=== PATIENT | male | born 1945 | race Caucasian/White ===

== ENCOUNTER → 2017-07-06 | Outpatient (CLI) | payer OTHER ==
[2017-07-06 10:10] LABS: BASO % 0.4 % (0.0-1.0); EOS # 0.3 10*3/uL (0.0-0.4); EOS % 2.7 % (1.0-4.0); HEMOGLOBIN 13.3 g/dl (14.0-18.0); LYMPH # 1.6 10*3/uL (1.3-4.4); LYMPH % 16.8 % (27.0-41.0); MEAN CELL VOLUME 88.2 fl (80.0-94.0); MEAN CORPUSCULAR HGB 28.6 pg (27.0-31.0); MEAN CORPUSCULAR HGB CONC 32.4 g/dl (33.0-37.0); MEAN PLATELET VOLUME 9.6 fl (9.6-12.3); MONO # 0.9 10*3/uL (0.1-1.0); MONO % 9.2 % (3.0-9.0); NEUT # 6.9 10*3/uL (2.3-7.9); NEUT % 70.6 % (47.0-73.0); PLATELET COUNT AUTOMATED 325 10*3/uL (130-400); RED BLOOD COUNT 4.65 10*6/uL (4.50-5.90); WHITE BLOOD COUNT 9.8 10*3/uL (4.8-10.8)
== END | disposition home or self-care (01) ==
LOC: LAB 09:49
PROVIDERS: Family Medicine
DX: J06.9 Acute upper respiratory infection, unspecified (principal); K76.89 Other specified diseases of liver; R07.81 Pleurodynia; Z87.891 Personal history of nicotine dependence

== ENCOUNTER → 2017-09-21 | Outpatient (CLI) | payer OTHER ==
[2017-09-21 13:02] LABS: BASO # 0.1 10*3/uL (0.0-0.1); BASO % 0.9 % (0.0-1.0); EOS # 0.2 10*3/uL (0.0-0.4); EOS % 2.4 % (1.0-4.0); HEMATOCRIT 46.7 % (42.0-52.0); HEMOGLOBIN 14.8 g/dl (14.0-18.0); LYMPH # 2.5 10*3/uL (1.3-4.4); LYMPH % 27.5 % (27.0-41.0); MEAN CELL VOLUME 88.1 fl (80.0-94.0); MEAN CORPUSCULAR HGB 27.9 pg (27.0-31.0); MEAN CORPUSCULAR HGB CONC 31.7 g/dl (33.0-37.0); MEAN PLATELET VOLUME 10.8 fl (9.6-12.3); MONO # 0.7 10*3/uL (0.1-1.0); MONO % 7.4 % (3.0-9.0); NEUT # 5.6 10*3/uL (2.3-7.9); NEUT % 61.5 % (47.0-73.0); PLATELET COUNT AUTOMATED 266 10*3/uL (130-400); RED CELL DISTRI WIDTH 14.5 % (0-14.5); WHITE BLOOD COUNT 9.1 10*3/uL (4.8-10.8)
== END | disposition home or self-care (01) ==
LOC: LAB 12:07
PROVIDERS: Family Medicine
DX: J18.9 Pneumonia, unspecified organism (principal)

== ENCOUNTER → 2018-02-23 | Day surgery (SDC) | payer OTHER ==
[~2018-02-23] VITALS: Ht 172.7 cm; Wt 98.4 kg
[~2018-02-23] MED LIST: AMLODIPINE BESYL5 MG PO; QUINAPRIL20 MG PO
--- NOTE | ~2018-02-23 | O ---
[place], [place] OPERATIVE NOTE NAME: DENISA SOARES UNIT #: [id number] ROOM: DOCTOR: JAD THAKUR MD BIRTHDATE: [birth year] DOS: 02/23/2018 HISTORY OF PRESENT ILLNESS: This is a 72-year-old patient who has presented with a concern of colonic screening. ALLERGIES: No known to medication. PAST MEDICAL HISTORY: Associated with hypertension. SOCIAL HISTORY: Nonsmoker. Social alcohol consumer. PAST SURGICAL HISTORY: Right total knee. OPERATION PERFORMED: Today's procedure part of investigation is colonoscopy plus 4 snare polypectomy and 2 piecemeal polypectomy. PREMEDICATION: Propofol. SCOPE: Olympus forward-viewing colonoscope 10L video. REPORT: After putting the patient in left lateral position and application of lubricant to rectal pouch and digital examination, scope was introduced. Thereafter, under direct visualization, advanced through the length of colon without difficulty. A sessile colonic polyp from rectal pouch with piecemeal polypectomy removed. Another polypoid lesion with a snare was polypectomized. Scope negotiated to the splenic flexure, polypoid lesion with snare was polypectomized. Another polypoid lesion from hepatic flexure was polypectomized. As I approached the base of cecum, another vertically positioned polyp was shaved off the skin with snare polypectomy and another small sessile polypoid lesion with piecemeal polypectomy removed. Base of the cecum explored. Appendiceal orifice identified and ileocecal valve was defined. Scope was gradually withdrawn. A very tortuous redundant colon experienced. Diverticulosis, particularly left side of the colon was noticed. Air was suctioned out. The patient was extubated and tolerated the procedure well. IMPRESSION: Diverticulosis, multiple colonic polyps at sigmoid colon, splenic flexure, hepatic flexure and cecum; redundant and tortuous colon. PLAN AND DISCUSSION: High fiber fruit diet. ACTIVITY: Ad fabiana. FOLLOWUP: Routinely with you in office and p.r.n. visit with us in [facility]. [place], [place] OPERATIVE NOTE NAME: DENISA SOARES UNIT #: [id number] ROOM: DOCTOR: JAD THAKUR MD BIRTHDATE: [birth year] JDA THAKUR MD CM:OPRECORD:OPERATIVE NOTE [id number] HERB THAKUR MD (TED) 02/23/18 1337 interface
[2018-02-23 11:21] VITALS: BP 142/84
[2018-02-23 13:13] VITALS: BP 132/84
[2018-02-23 13:25] VITALS: BP 129/78
[2018-02-23 13:40] VITALS: BP 130/77
== END | disposition home or self-care (01) ==
LOC: SDC 02-22 08:00
DX: Z12.11 Encounter for screening for malignant neoplasm of colon (principal); K63.5 Polyp of colon; D12.8 Benign neoplasm of rectum; K56.2 Volvulus; K57.30 Diverticulosis of large intestine without perforation or abscess without bleeding; I10 Essential (primary) hypertension; M19.90 Unspecified osteoarthritis, unspecified site; Z87.891 Personal history of nicotine dependence; Z96.651 Presence of right artificial knee joint; Z80.0 Family history of malignant neoplasm of digestive organs

== ENCOUNTER → 2019-12-25 | Outpatient (CLI) | payer OTHER ==
[2019-12-25 08:27] LABS: BASO # 0.1 10*3/uL (0.0-0.1); BASO % 0.9 % (0.0-1.0); EOS # 0.2 10*3/uL (0.0-0.4); EOS % 2.5 % (1.0-4.0); HEMATOCRIT 48.5 % (42.0-52.0); LYMPH # 2.1 10*3/uL (1.3-4.4); LYMPH % 26.9 % (27.0-41.0); MEAN CELL VOLUME 87.7 fl (80.0-94.0); MEAN CORPUSCULAR HGB 28.2 pg (27.0-31.0); MEAN CORPUSCULAR HGB CONC 32.2 g/dl (33.0-37.0); MEAN PLATELET VOLUME 10.3 fl (9.6-12.3); MONO # 0.6 10*3/uL (0.1-1.0); MONO % 8.1 % (3.0-9.0); NEUT # 4.8 10*3/uL (2.3-7.9); NEUT % 61.3 % (47.0-73.0); PLATELET COUNT AUTOMATED 274 10*3/uL (130-400); RED BLOOD COUNT 5.53 10*6/uL (4.50-5.90); RED CELL DISTRI WIDTH 12.7 % (0-14.5); WHITE BLOOD COUNT 7.7 10*3/uL (4.8-10.8)
[2019-12-25 08:54] LABS: ALKALINE PHOSPHATASE 74 U/L (45-117); BILIRUBIN, DIRECT 0.2 mg/dL (0.0-0.2); BUN 24 mg/dl (7-24); CHLORIDE 104 mmol/L (98-107); CHOLESTEROL 210 mg/dL (<200); CREATININE 1.15 mg/dL (0.70-1.30); HDL CHOLESTEROL 31 mg/dl (40-60); LDL CHOLESTEROL 121 mg/dL (9-159); SGOT/AST 26 IU/L (3-35); SGPT/ALT 42 U/L (12-78); SODIUM 140 mmol/L (136-145); TRIGLYCERIDES 289 mg/dl (<150); VLDL CHOLESTEROL 58 mg/dL (6-40)
[2019-12-25 08:58] LABS: THYROXINE (T4) TOTAL 9.3 ug/dl (4.5-12.1)
== END | disposition home or self-care (01) ==
LOC: LAB 07:33
PROVIDERS: ATTEND Family Medicine
DX: Z12.5 Encounter for screening for malignant neoplasm of prostate (principal); Z00.00 Encounter for general adult medical examination without abnormal findings; R35.1 Nocturia; R53.82 Chronic fatigue, unspecified; E55.9 Vitamin D deficiency, unspecified; Z79.899 Other long term (current) drug therapy

== ENCOUNTER → 2020-02-03 | Outpatient (CLI) | payer OTHER ==
[2020-02-03 09:06] LABS: CHOLESTEROL 160 mg/dL (<200); HDL CHOLESTEROL 33 mg/dl (40-60); LDL CHOLESTEROL 78 mg/dL (9-159); TRIGLYCERIDES 247 mg/dl (<150); VLDL CHOLESTEROL 49 mg/dL (6-40)
== END | disposition home or self-care (01) ==
LOC: LAB 08:15
PROVIDERS: ATTEND Family Medicine
DX: E78.00 Pure hypercholesterolemia, unspecified (principal); R73.9 Hyperglycemia, unspecified

== ENCOUNTER → 2021-01-18 | Outpatient (CLI) | payer OTHER ==
[2021-01-18 08:10] LABS: BASO # 0.1 10*3/uL (0.0-0.1); EOS # 0.2 10*3/uL (0.0-0.4); EOS % 2.7 % (1.0-4.0); HEMATOCRIT 47.6 % (42.0-52.0); LYMPH % 28.3 % (27.0-41.0); MEAN CORPUSCULAR HGB 28.8 pg (27.0-31.0); MEAN CORPUSCULAR HGB CONC 32.4 g/dl (33.0-37.0); MEAN PLATELET VOLUME 10.7 fl (9.6-12.3); MONO # 0.5 10*3/uL (0.1-1.0); MONO % 7.6 % (3.0-9.0); NEUT # 4.2 10*3/uL (2.3-7.9); NEUT % 60.1 % (47.0-73.0); PLATELET COUNT AUTOMATED 264 10*3/uL (130-400); RED BLOOD COUNT 5.35 10*6/uL (4.50-5.90); RED CELL DISTRI WIDTH 12.6 % (0-14.5)
[2021-01-18 08:29] LABS: ALBUMIN 3.5 gm/dl (3.1-4.5); BUN 15 mg/dl (7-24); CHLORIDE 106 mmol/L (98-107); CHOLESTEROL 207 mg/dL (<200); CREATININE 0.97 mg/dL (0.70-1.30); LDL CHOLESTEROL 112 mg/dL (9-159); POTASSIUM 3.8 mmol/L (3.5-5.1); SGOT/AST 27 IU/L (3-35); SGPT/ALT 44 U/L (12-78); SODIUM 138 mmol/L (136-145); THYROXINE (T4) TOTAL 9.4 ug/dl (4.5-12.1); TOTAL PROTEIN 7.4 gm/dL (6.4-8.2); TRIGLYCERIDES 327 mg/dl (<150)
[2021-01-18 08:34] LABS: ALKALINE PHOSPHATASE 85 U/L (45-117)
== END | disposition home or self-care (01) ==
LOC: LAB 07:38
PROVIDERS: ATTEND Family Medicine
DX: Z12.5 Encounter for screening for malignant neoplasm of prostate (principal); E55.9 Vitamin D deficiency, unspecified; I10 Essential (primary) hypertension; R35.1 Nocturia; Z79.899 Other long term (current) drug therapy

== ENCOUNTER → 2021-08-09 | Outpatient (CLI) | payer OTHER ==
[2021-08-09 08:19] LABS: BASO # 0.1 10*3/uL (0.0-0.1); EOS # 0.2 10*3/uL (0.0-0.4); EOS % 2.6 % (1.0-4.0); HEMATOCRIT 47.9 % (42.0-52.0); LYMPH # 2.1 10*3/uL (1.3-4.4); LYMPH % 28.1 % (27.0-41.0); MEAN CELL VOLUME 88.1 fl (80.0-94.0); MEAN CORPUSCULAR HGB 28.7 pg (27.0-31.0); MEAN CORPUSCULAR HGB CONC 32.6 g/dl (33.0-37.0); MEAN PLATELET VOLUME 10.5 fl (9.6-12.3); MONO # 0.6 10*3/uL (0.1-1.0); MONO % 7.5 % (3.0-9.0); NEUT # 4.6 10*3/uL (2.3-7.9); NEUT % 60.5 % (47.0-73.0); PLATELET COUNT AUTOMATED 235 10*3/uL (130-400); RED BLOOD COUNT 5.44 10*6/uL (4.50-5.90); RED CELL DISTRI WIDTH 13.1 % (0-14.5); WHITE BLOOD COUNT 7.6 10*3/uL (4.8-10.8)
[2021-08-09 08:36] LABS: ALKALINE PHOSPHATASE 92 U/L (45-117); BUN 21 mg/dl (7-24); CHLORIDE 103 mmol/L (98-107); CREATININE 1.09 mg/dL (0.70-1.30); POTASSIUM 4.1 mmol/L (3.5-5.1); SGOT/AST 30 IU/L (3-35); SGPT/ALT 46 U/L (12-78); SODIUM 138 mmol/L (136-145)
== END | disposition home or self-care (01) ==
LOC: LAB 08:00
PROVIDERS: ATTEND Family Medicine
DX: I10 Essential (primary) hypertension (principal); R73.9 Hyperglycemia, unspecified

== ENCOUNTER → 2021-11-22 | Outpatient (CLI) | payer OTHER ==
[2021-11-22 09:58] LABS: CHOLESTEROL 202 mg/dL (<200); LDL CHOLESTEROL 106 mg/dL (9-159); TRIGLYCERIDES 327 mg/dl (<150)
== END ==
LOC: LAB 08:30
PROVIDERS: ATTEND Family Medicine
DX: E11.9 Type 2 diabetes mellitus without complications (principal); R53.83 Other fatigue; E78.00 Pure hypercholesterolemia, unspecified

== ENCOUNTER → 2022-02-04 | Outpatient (CLI) | payer OTHER | END | disposition home or self-care (01) | LOC: RAD 09:43 | PROVIDERS: ATTEND Chiropractor | DX: M47.817 Spondylosis without myelopathy or radiculopathy, lumbosacral region (principal); I70.0 Atherosclerosis of aorta ==

== ENCOUNTER → 2022-05-20 | Outpatient (CLI) | payer OTHER | END | disposition home or self-care (01) | LOC: LAB 11:57 | PROVIDERS: ATTEND Family Medicine | DX: R91.1 Solitary pulmonary nodule (principal); R61 Generalized hyperhidrosis ==

== ENCOUNTER → 2022-05-23 | Outpatient (CLI) | payer OTHER | END | disposition home or self-care (01) | LOC: CT 01:33 | PROVIDERS: ATTEND Family Medicine | DX: J18.9 Pneumonia, unspecified organism (principal); J84.10 Pulmonary fibrosis, unspecified; K76.0 Fatty (change of) liver, not elsewhere classified; K80.20 Calculus of gallbladder without cholecystitis without obstruction; R91.1 Solitary pulmonary nodule; R61 Generalized hyperhidrosis ==

== ENCOUNTER → 2023-02-09 | Outpatient (CLI) | payer OTHER ==
[2023-02-09 15:51] LABS: BASO # 0.1 10*3/uL (0.0-0.1); BASO % 0.5 % (0.0-1.0); EOS # 0.3 10*3/uL (0.0-0.4); EOS % 2.4 % (1.0-4.0); HEMATOCRIT 45.6 % (42.0-52.0); LYMPH # 1.2 10*3/uL (1.3-4.4); LYMPH % 11.5 % (27.0-41.0); MEAN CORPUSCULAR HGB 27.9 pg (27.0-31.0); MEAN PLATELET VOLUME 10.4 fl (9.6-12.3); MONO # 0.7 10*3/uL (0.1-1.0); MONO % 6.3 % (3.0-9.0); NEUT # 8.2 10*3/uL (2.3-7.9); NEUT % 79.1 % (47.0-73.0); PLATELET COUNT AUTOMATED 274 10*3/uL (130-400); RED BLOOD COUNT 5.24 10*6/uL (4.50-5.90); WHITE BLOOD COUNT 10.4 10*3/uL (4.8-10.8)
== END | disposition home or self-care (01) ==
LOC: LAB 15:08
PROVIDERS: ATTEND Family Medicine
DX: R05.9 Cough, unspecified (principal)

== ENCOUNTER → 2023-10-26 | Outpatient (CLI) | payer OTHER ==
[2023-10-26 15:19] LABS: BASO # 0.1 10*3/uL (0.0-0.1); BASO % 0.9 % (0.0-1.0); EOS # 0.2 10*3/uL (0.0-0.4); EOS % 2.7 % (1.0-4.0); HEMATOCRIT 46.5 % (42.0-52.0); LYMPH # 1.9 10*3/uL (1.3-4.4); MEAN CELL VOLUME 90.3 fl (80.0-94.0); MEAN CORPUSCULAR HGB 28.3 pg (27.0-31.0); MEAN CORPUSCULAR HGB CONC 31.4 g/dl (33.0-37.0); MEAN PLATELET VOLUME 10.2 fl (9.6-12.3); MONO # 0.6 10*3/uL (0.1-1.0); MONO % 7.2 % (3.0-9.0); NEUT # 5.1 10*3/uL (2.3-7.9); NEUT % 64.9 % (47.0-73.0); PLATELET COUNT AUTOMATED 212 10*3/uL (130-400); RED BLOOD COUNT 5.15 10*6/uL (4.50-5.90); RED CELL DISTRI WIDTH 12.8 % (0-14.5); WHITE BLOOD COUNT 7.9 10*3/uL (4.8-10.8)
== END | disposition home or self-care (01) ==
LOC: LAB 15:07
PROVIDERS: ATTEND Family Medicine
DX: R05.9 Cough, unspecified (principal)

== ENCOUNTER 2024-03-07 13:22 | Emergency (ER) | payer OTHER ==
[~2024-03-07] VITALS: Ht 172.7 cm; Wt 99.8 kg
[2024-03-07] MEDS ORDERED: Tdap Vaccine 0.5 ML SYR (Adult Vaccine) IM ONE (13:45)
[2024-03-07] MEDS ORDERED: Ondansetron Hydrochloride 4 MG TAB SL ONE (14:20)
[2024-03-07] MEDS ORDERED: DOXYCYCLINE HY100 M3 PO (14:28)
[2024-03-07] MEDS ORDERED: CODEINE-GUAIFE120 M1 PO (14:29)
[2024-03-07] MEDS ORDERED: LISINOPRIL20 MG PO (14:30)
[2024-03-07] MEDS ORDERED: LEVOTHYROXINE100 MC1 PO (14:30)
[2024-03-07] MEDS ORDERED: ceFAZolin sodium 1 GM VIAL IM ONE (15:20)
== END 2024-03-07 16:17 | disposition short-term general hospital (02) ==
LOC: ED 13:22
DX: S02.31XA Fracture of orbital floor, right side, initial encounter for closed fracture (principal); S01.111A Laceration without foreign body of right eyelid and periocular area, initial encounter; I10 Essential (primary) hypertension; Z98.890 Other specified postprocedural states; W01.10XA Fall on same level from slipping, tripping and stumbling with subsequent striking against unspecified object, initial encounter; Y93.01 Activity, walking, marching and hiking; Y92.89 Other specified places as the place of occurrence of the external cause; Y99.8 Other external cause status

== ENCOUNTER → 2024-05-03 | Outpatient (CLI) | payer OTHER ==
[~2024-05-03] MED LIST changes: +CODEINE-GUAIFE120 M1 PO; +DOXYCYCLINE HY100 M3 PO; +LEVOTHYROXINE100 MC1 PO; +LISINOPRIL20 MG PO
[2024-05-03 14:22] LABS: BASO # 0.1 10*3/uL (0.0-0.1); BASO % 0.7 % (0.0-1.0); EOS # 0.3 10*3/uL (0.0-0.4); EOS % 2.7 % (1.0-4.0); HEMATOCRIT 48.5 % (42.0-52.0); MEAN CELL VOLUME 89.5 fl (80.0-94.0); MEAN CORPUSCULAR HGB 28.2 pg (27.0-31.0); MEAN CORPUSCULAR HGB CONC 31.5 g/dl (33.0-37.0); MEAN PLATELET VOLUME 9.8 fl (9.6-12.3); MONO # 0.9 10*3/uL (0.1-1.0); MONO % 8.6 % (3.0-9.0); NEUT % 77.9 % (47.0-73.0); PLATELET COUNT AUTOMATED 224 10*3/uL (130-400); RED BLOOD COUNT 5.42 10*6/uL (4.50-5.90); RED CELL DISTRI WIDTH 12.7 % (0-14.5); WHITE BLOOD COUNT 10.3 10*3/uL (4.8-10.8)
== END | disposition home or self-care (01) ==
LOC: LAB 14:07
PROVIDERS: ATTEND Family Medicine
DX: J44.9 Chronic obstructive pulmonary disease, unspecified (principal); R05.9 Cough, unspecified; M47.814 Spondylosis without myelopathy or radiculopathy, thoracic region

== ENCOUNTER → 2025-02-19 | Outpatient (CLI) | payer OTHER | END | disposition home or self-care (01) | LOC: LAB 12:00 | PROVIDERS: ATTEND Family Medicine | DX: K21.9 Gastro-esophageal reflux disease without esophagitis (principal) ==